=== PATIENT | female | born 1970 | race Caucasian/White ===

== ENCOUNTER → 2019-11-02 07:25 | Outpatient (CLI) | payer OTHER, SELFPAY ==
--- NOTE | ~2019-11-02 | XR_ITS ---
XR lumbar spine 2-3V DATE: 11/02/2019 07:56 INDICATION: Sciatica TECHNIQUE: AP and lateral and coned lateral lumbosacral views COMPARISON: 11/20/2008 lumbar spine FINDINGS: The lumbar vertebrae are normally aligned. No fracture or bone destruction or spondylolisth esis. The lumbar pedicles are intact. There is severe degenerative disc disease including loss of dis c space height and spurring at L5-S1 and moderate degenerative disease at the remaining lumbar inters paces. There is prominent bony spurring posteriorly encroaching upon the lumbar spinal canal at L4-5. The sacroiliac joints are normal. IMPRESSION: Multilevel degenerative disc disease, most pronounced at L5-S1; particularly prominent po sterior bony spurring at L4-5 encroaching upon the lumbar spinal canal Reviewed, dictated and finalized at location B. [facility] IMPRESSION: Multilevel degenerative disc disease, most pronounced at L5-S1; par ticularly prominent posterior bony spurring at L4-5 encroaching upon the lumbar spinal canal
--- NOTE | ~2019-11-02 | MM_ITS ---
EXAMINATION: MM screening [facility] BI w [facility] HISTORY: Screening mammogram TECHNIQUE: Craniocaudal and mediolateral oblique 3-D tomosynthesis images were obtained and synthetic 2-D images were generated. CAD analysis was submitted and interpreted. COMPARISON: 02/20/2014 BREAST PARENCHYMAL COMPOSITION: The breasts are almost entirely fatty. FINDINGS: Stable bilateral breast masses are considered benign given the lack of interval change. The re is no evidence of suspicious mass, calcification, or architectural distortion to suggest malignanc y in either breast. There has been no suspicious interval change. IMPRESSION: 1. No mammographic evidence of malignancy. 2. Recommend routine screening mammography in one year. BI-RADS Category 2: Benign finding(s). Reviewed, dictated and finalized at location A. [employer]
== END ==
PROVIDERS: PCP Physician Assistant; Visit Provider Physician Assistant
DX: Z12.31 Encounter for screening mammogram for malignant neoplasm of breast (principal); M54.32 Sciatica, left side; M51.37 Other intervertebral disc degeneration, lumbosacral region; M77.8 Other enthesopathies, not elsewhere classified; M46.06 Spinal enthesopathy, lumbar region
CPT/HCPCS: 72100; 77063; 77067

== ENCOUNTER → 2019-11-23 07:23 | Outpatient (CLI) | payer OTHER, SELFPAY ==
--- NOTE | ~2019-11-23 | MR_ITS ---
EXAMINATION: MR lumbar spine wo con DATE: 11/23/2019 07:58 INDICATION: Degeneration of lumbosacral intervertebral disc. Low back pain. TECHNIQUE: Magnetic resonance imaging (MRI) of the lumbar spine was performed without intravenous con trast. Sequences included sagittal T2-weighted FSE, sagittal T2-weighted FS FSE, sagittal T1-weighted FSE, and axial T2-weighted FSE. COMPARISON: Lumbar spine radiographs 11/02/2019 FINDINGS: There is 3 degrees dextrocurvature of lumbar spine. There are Schmorl's nodes from T11-T12 through L1-L2. There is moderately decreased disc height at L5-S1. The distal spinal cord signal inte nsity is normal. The conus medullaris is at L1-L2. The following disc levels are specifically discuss ed: L1-L2: The disc is bulging and has an annular fissure. There is mild bilateral facet joint osteoarthr itis. There is mild left neural foraminal stenosis. There is mild central canal stenosis. L2-L3: The disc does not extend beyond the endplate margin. There is mild right and moderate left fac et joint osteoarthritis. There is no neural foraminal stenosis. There is no central canal stenosis. L3-L4: There is a left foraminal protrusion. There is mild bilateral facet joint osteoarthritis. Ther e is mild left neural foraminal stenosis. There is no central canal stenosis. L4-L5: The disc is bulging and has an annular fissure. There is severe right and moderate left facet joint osteoarthritis. There is moderate bilateral neural foraminal stenosis. There is mild central ca nal stenosis. L5-S1: The disc is bulging and has an annular fissure. There is moderate bilateral facet joint osteoa rthritis. There is moderate bilateral neural foraminal stenosis. There is mild central canal stenosis . IMPRESSION: 1. Moderate lumbar spondylosis. Reviewed, dictated and finalized at location A.
== END ==
PROVIDERS: PCP Physician Assistant; Visit Provider Physician Assistant
DX: M51.37 Other intervertebral disc degeneration, lumbosacral region (principal); M47.816 Spondylosis without myelopathy or radiculopathy, lumbar region
CPT/HCPCS: 72148

== ENCOUNTER → 2021-12-16 08:20 | Outpatient (CLI) | payer OTHER, SELFPAY ==
--- NOTE | ~2021-12-16 | US_ITS ---
EXAMINATION: US pelvic complete w TV EXAM DATE: 12/16/2021 10:00 INDICATION: Right-sided pelvic and perineal pain. TECHNIQUE: Pelvic transabdominal and transvaginal sonogram was performed. There are multiple graysca le and Doppler images available for interpretation. There is no prior study for comparison. FINDINGS: Uterus measures 6.2 x 3.7 x 4.2 cm, and is morphologically normal. Endometrial stripe ryley sures 5 mm, within normal limits. There is no free pelvic fluid. Right adnexa: The ovary measures 2.9 x 1.9 x 2.6 cm and is morphologically normal. Ovarian vascular f low confirmed. Left adnexa: The ovary measures 2.6 x 1.6 x 2.3 cm, with a small complex cystic lesion, appears to dotson ve some calcifications along the wall, measuring 1.5 x 1.4 x 1.7 cm. Ovarian vascular flow confirmed. IMPRESSION: Small complex cystic left ovarian mass, could be teratoma given some suspected calcificat ions but other histologies not excludable. Consider 6-12 month follow-up pelvic sonogram. Reviewed, dictated and finalized at location A. IMPRESSION: Small complex cystic left ovarian mass, could be teratoma given yusra e suspected calcifications but other histologies not excludable. Consider 6-12 month follow-up pelvic sonogram.
--- NOTE | ~2021-12-16 | US_ITS ---
EXAMINATION: US soft tissue groin RT DATE: 12/16/2021 08:41 INDICATION: Right inguinal pain TECHNIQUE: Multiple grayscale and Doppler ultrasound images of the region of concern at the right farhad in were obtained. COMPARISON: None FINDINGS: There is a normal-sized 1.8 x 0.6 x 1.3 cm hypoechoic lymph node with central echogenic fatty hilum a t the region of concern. No pathologically enlarged lymphadenopathy or other abnormal masses or fluid collections identified at the region of concern. IMPRESSION: 1. Normal-sized right inguinal lymph node at the region of concern. Reviewed, dictated and finalized at location B.
== END ==
PROVIDERS: PCP Physician Assistant; Visit Provider Nurse Practitioner Obstetrics & Gynecology
DX: R10.2 Pelvic and perineal pain (principal); N83.202 Unspecified ovarian cyst, left side
CPT/HCPCS: 76830; 76856; 76882

== ENCOUNTER → 2021-12-20 17:36 | Outpatient (CLI) | payer OTHER, SELFPAY ==
--- NOTE | ~2021-12-20 | MM_ITS ---
EXAMINATION: MM screening [facility] w [facility] HISTORY: Screening mammogram TECHNIQUE: Craniocaudal and mediolateral oblique 3-D tomosynthesis images were obtained and synthetic 2-D images were generated. CAD analysis was submitted and interpreted. COMPARISON: November 02, 2019, February 20, 2014 bilateral screening mammogram examinations BREAST PARENCHYMAL COMPOSITION: The breasts are almost entirely fatty. FINDINGS: Stable bilateral circumscribed subcentimeter masses, likely benign intramammary lymph nodes , not significantly changed since 02/20/2014. There is no evidence of suspicious mass, calcification, o r architectural distortion to suggest malignancy in either breast. There has been no suspicious inter debbi change. IMPRESSION: 1. No mammographic evidence of malignancy. 2. Recommend routine screening mammography in one year. BI-RADS Category 2: Benign finding(s). Reviewed, dictated and finalized at location A.
== END ==
PROVIDERS: PCP Physician Assistant; Visit Provider Physician Assistant
DX: Z12.31 Encounter for screening mammogram for malignant neoplasm of breast (principal)
CPT/HCPCS: 77063; 77067

== ENCOUNTER → 2022-12-22 16:56 | Outpatient (CLI) | payer OTHER, SELFPAY ==
--- NOTE | ~2022-12-22 | MM_ITS ---
EXAMINATION: MM screening [facility] HISTORY: Screening mammogram TECHNIQUE: Craniocaudal and mediolateral oblique 3-D tomosynthesis images were obtained and synthetic 2-D images were generated. CAD analysis was submitted and interpreted. COMPARISON: 12/20/2021, 11/02/2019 BREAST PARENCHYMAL COMPOSITION:The breasts are almost entirely fatty FINDINGS: Stable intramammary lymph nodes. No suspicious mass, calcification, or architectural distor tion are identified in either breast to suggest malignancy. There has been no suspicious interval conrad nge. IMPRESSION: No mammographic evidence of malignancy. Recommend routine screening mammography in one year. BI-RADS Category 2: Benign finding(s). Reviewed, dictated and finalized at location .
== END ==
PROVIDERS: PCP Physician Assistant; Visit Provider Physician Assistant
DX: Z12.31 Encounter for screening mammogram for malignant neoplasm of breast (principal)
CPT/HCPCS: 77063; 77067

== ENCOUNTER 2024-02-16 15:55 | Outpatient (CLI) | payer BC, SELFPAY ==
--- NOTE | ~2024-02-16 | MM_ITS ---
EXAMINATION: MM screening [facility] HISTORY: Screening TECHNIQUE: Craniocaudal and mediolateral oblique 3-D tomosynthesis images were obtained and synthetic 2-D images were generated. CAD analysis was submitted and interpreted. COMPARISON: Comparison to multiple prior studies sequentially, with oldest reviewed study dated 05/2014. BREAST PARENCHYMAL COMPOSITION: The breasts are almost entirely fatty. FINDINGS: There is no evidence of suspicious mass, calcification, or architectural distortion to sugg est malignancy in either breast. There has been no suspicious interval change. IMPRESSION: 1. No mammographic evidence of malignancy. 2. Recommend routine screening mammography in one year. BI-RADS Category 1: Negative Reviewed, dictated and finalized at location B.
== END 2024-02-16 15:56 ==
LOC: MICIMG 15:57
PROVIDERS: PCP Physician Assistant; Visit Provider Physician Assistant
DX: Z12.31 Encounter for screening mammogram for malignant neoplasm of breast (principal)
CPT/HCPCS: 77063; 77067